=== PATIENT | male | born 1990 | race Caucasian/White ===

== ENCOUNTER 2025-03-22 03:41 | Emergency (ER) | payer BC, SELFPAY ==
--- NOTE | 2025-03-22 03:42 | ED.GENADULT ---
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 States that he was on a binge drinking for the past 5 days, states this is more typical of his drinking behavior. He states that he started seeing shadows and thought he was hallucinating no auditory hallucinations no active SI HI, states that he has been feeling some palpitations but no actual chest pain or shortness of breath. He states that he is not looking for rehab but states that this is the 1st time that he was seeing possible visual hallucinations therefore came into the ED for further evaluation treatment. He does state some nausea but no vomiting, states that he does have some tingling sensations to his bilateral arms, states it is to the palms of his hands. Related Data Home Medications ?Medication ?Instructions ?Recorded ?Confirmed No Known Home Medications 03/22/25 03/22/25 Allergies Allergy/AdvReac Type Severity Reaction Status Date / Time latex Allergy Mild Verified 03/22/25 03:45 Review of Systems Review of Systems Narrative: General: Denies fever, chills, weight loss HEENT: Denies headache, eye drainage, eye irritation, head trauma, sore throat, voice change Cardiovascular: Denies any chest pain, palpitations, tachycardia Respiratory: Denies any shortness of breath, cough, wheeze, stridor GI/: Denies any abdominal pain, nausea, vomiting, diarrhea, bright red blood per rectum, melanotic stools, urinary frequency, urinary retention, dysuria, hematuria MSK: Denies any joint pain, muscle pains, swelling Skin: Denies any rashes, lesions, discoloration Neuro: Denies any headache, lightheadedness, dizziness, fainting, weakness Psych: Denies SI/HI, positive visual hallucinations Exam Narrative Exam Narrative: General: Cooperative, well-developed, not in acute distress HEENT: Normocephalic, atraumatic, PERRLA, normal sclera, eyelids normal Neck: Active full range of motion, atraumatic Chest: Normal to inspection, negative crepitus, no overlying erythema ecchymosis Respiratory: Normal respiratory effort, not in acute respiratory distress, clear to auscultation bilaterally negative cough, wheeze, tachypnea, rhonchi, rales Cardiology: Regular rate rhythm negative gallop, murmur, rubs GI/: No tenderness to palpation, soft, non rigid, normal to inspection, exam deferred MSK: Full active range of motion in all 4 extremities, atraumatic, no tenderness to palpation of any bony prominences Skin: No rashes or lesions noted Neuro: Alert awake oriented x3, moves all 4 extremities spontaneously, cranial nerves intact, able to answer all questions appropriately follows commands appropriately Psych: Cooperative, negative suicidal or homicidal ideations Initial Vital Signs Initial Vital Signs: Vital Signs Temperature 98 F 03/22/25 03:45 Pulse Rate 106 H 03/22/25 03:45 Respiratory Rate 16 03/22/25 03:45 Blood Pressure 129/70 03/22/25 03:45 Pulse Oximetry 100 03/22/25 03:45 Oxygen Delivery Method Room Air 03/22/25 03:45 Course Orders Ordered: ED Orders 03/22/25 03:47 Complete Blood Count AUTO DIFF Stat Comprehensive Metabolic Panel Stat Ethanol (ETOH) Stat TSH w/ Reflex to FT4 Stat EKG-12 Lead Stat 03/22/25 03:48 XR chest 1V Stat MAG [Magnesium] Stat 03/22/25 03:52 Troponin & CK Cardiac Panel Stat 03/22/25 03:56 Urine Drug Screen, Rapid Stat 03/22/25 04:00 Urine Culture Stat Urine Microscopic Stat Discontinued Medications Folic Acid (Folic Acid 1 Mg Tablet) 1 mg PO NOW ONE Stop: 03/22/25 03:48 Last Admin: 03/22/25 04:07 Dose: 1 mg Sodium Chloride (Normal Saline 0.9%) 1,000 mls @ 1,000 mls/hr IV BOLUS ONE Stop: 03/22/25 04:46 Last Admin: 03/22/25 03:56 Dose: 1,000 mls/hr Ondansetron HCl (Ondansetron 4 Mg/2 Ml Inj) 4 mg IV NOW ONE Stop: 03/22/25 03:48 Last Admin: 03/22/25 03:56 Dose: 4 mg Phenobarbital (Phenobarbital 65 Mg/Ml Vial) 130 mg IV NOW ONE Stop: 03/22/25 03:52 Last Admin: 03/22/25 03:56 Dose: 130 mg Thiamine HCl (Thiamine 100 Mg Tablet) 100 mg PO NOW ONE Stop: 03/22/25 03:48 Last Admin: 03/22/25 04:07 Dose: 100 mg Vital Signs Vital signs: Vital Signs - 8 hr 03/22/25 03:45 03/22/25 04:08 03/22/25 04:08 Temperature 98 F Pulse Rate 106 H 98 H Respiratory Rate 16 Blood Pressure 129/70 144/74 H Pulse Oximetry 100 100 Oxygen Delivery Method Room Air Room Air Medical Decision Making Lab Data 03/22/25 04:03 03/22/25 04:03 Labs: Lab Results 03/22/25 03/22/25 Range/Units 03:56 04:03 WBC 8.5 (4.5-11.0) X10^3/uL RBC 5.06 (4.5-5.9) X10^6/uL Hgb 15.2 (13.5-17.5) g/dL Hct 43.7 (41-53) % MCV 86.4 (80-100) fL MCH 30.0 (26-34) PG MCHC 34.7 (30-36) % RDW 13.6 (11.6-14.8) % Plt Count 233 (150-400) X10^3/uL Neut % (Auto) 64.0 (50-75) % Lymph % (Auto) 26.6 (25-40) % [place] % (Auto) 8.4 (3-14) % Eos % (Auto) 0.7 L (2-4) % Baso % (Auto) 0.3 (0-2) % Neut # (Auto) 5500 (2827-5988) /uL Lymph # (Auto) 2300 (6053-2958) /uL [place] # (Auto) 700 (0-900) /uL Eos # (Auto) 100 (0-450) /uL Baso # (Auto) 0 (0-100) /uL Sodium 141 (137-145) mmol/L Potassium 3.5 (3.4-5.1) mmol/L Chloride 104 (98-107) mmol/L Carbon Dioxide 19 L (22-32) mmol/L BUN 16 (9-20) mg/dL Creatinine 0.70 (0.66-1.25) mg/dL Estimated GFR > 60 (>60) mL/min BUN/Creatinine Ratio 22.9 H (6-22) Glucose 109 H (70-99) mg/dL Calcium 9.7 (8.4-10.2) mg/dL Magnesium 1.7 (1.6-2.3) mg/dL Total Bilirubin 1.2 (0.2-1.3) mg/dL AST 48 (17-59) IU/L ALT 45 (<50) IU/L Alkaline Phosphatase 67 (38-126) U/L Total Creatine Kinase 159 (55-170) U/L Troponin I < 0.012 (0.01-0.034) ng/mL Total Protein 8.2 (6.3-8.2) g/dL Albumin 5.5 H (3.5-5.0) g/dL Globulin 2.7 (1.7-4.1) g/dL Albumin/Globulin Ratio 2.0 (1.0-2.8) Urine RBC 1-5/hpf (0-5/HPF) Urine WBC 1-5/hpf (0-5/HPF) Ur Squamous Epith Cells 1-5 /hpf (0-5/HPF) Urine Bacteria Few (2-10) H (None) Urine Mucus 2+ H (Negative) Ur Culture Indicated? TNP Vol Urine Centrifuged 10ml (spun) U Opiates 300ng/mL cut Negative (Negative) Ur Oxycodone Screen Negative (Negative) Urine Methadone Screen Negative (Negative) Ur Barbiturates Screen Negative (Negative) U Tricyclic Antidepress Negative (Negative) Ur Phencyclidine Scrn Negative (Negative) Ur Amphetamines Screen Negative (Negative) U Methamphetamines Scrn Negative (Negative) Ur MDMA Scrn (Ecstasy) Negative (Negative) U Benzodiazepines Scrn Negative (Negative) Urine Cocaine Screen Negative (Negative) U Marijuana (THC) Screen Positive H (Negative) Urine pH Normal (Normal) Urine Specific [place] Normal (Normal) Ethyl Alcohol 42 H (<10) mg/dL Ur Creatinine Normal (Normal) Urine Dip Bedside Urine Glucose Negative Bedside Urine Bilirubin - Negative Bedside Urine Ketone +++ 80 Urine Specific [place] 1.015 Bedside Urine Occult Blood + Bedside Urine pH 7.0 Bedside Urine Protein + 30 Bedside Urine Urobilinogen - Negative Bedside Urine Nitrite - Negative Bedside Urine Leukocytes - Negative Esterase Point of care testing: Urine Dip Bedside Urine Glucose Negative Bedside Urine Bilirubin - Negative Bedside Urine Ketone +++ 80 Urine Specific [place] 1.015 Bedside Urine Occult Blood + Bedside Urine pH 7.0 Bedside Urine Protein + 30 Bedside Urine Urobilinogen - Negative Bedside Urine Nitrite - Negative Bedside Urine Leukocytes - Negative Esterase ECG Data Interpretation: EKG interpreted ED physician sinus 82 beats per minute QTC 446, normal axis no STEMI MDM Narrative Medical decision making narrative: 34-year-old male history of alcohol abuse comes into the ED from home for evaluation of possible alcohol withdrawal, states that he normally been strength, states that his last drink was 6 hours ago and was Tequila has been drinking for the past 5 days. States that he has had history of rehab in the past but is not surgery for this today, he states he comes in because he has been having some tingling sensation to his bilateral upper extremities palpitations no chest pain shortness breath and he states that for the 1st time he started seeing possible hallucinations, states that he might have saw some shadows. No auditory hallucination no SI HI, at time of initial evaluation patient with a CIWA of 11, phenobarbital was ordered, he has calm and cooperative. He does not want any resources and or rehab. Patient's chest x-ray without any acute cardiopulmonary abnormality, lab work unremarkable, troponin negative, patient felt significantly better after dose of phenobarbital here. Repeat CIWA now 3. He was given strict return precautions he verbalized understanding and agrees to being discharged home with outpatient follow up. Discharge Plan Departure Patient Disposition: Home Clinical Impression: Alcohol abuse, Alcohol withdrawal Instructions: DI for Alcohol Use Disorder Activity Restrictions/Additional Instructions: Please follow up with the primary care doctor as needed Please try to limit your alcohol consumption Please read the discharge instructions sheet carefully and bring all papers to all doctor follow-up visits, as it may contain information that your doctor may want to see. Disease processes change and evolve, if your symptoms worsen or if you develop any new symptoms that are concerning to you please return for evaluation. Your evaluation today does not show any evidence of any life-threatening/serious illnesses requiring admission to the hospital or surgery. Please follow-up with your doctor for re-evaluation in approximately 1 day. Seek immediate medical attention for any worrisome symptoms. *If you do not have a primary care provider please contact the [facility] Resource line at [phone]. They will ask some questions about your medical history and help get you set up with a doctor in the community. Prescriptions: No Action No Known Home Medications Stand Alone Forms: Patient Portal/API
[2025-03-22 03:45] VITALS: BP 129/70; PULSE 106; RESP 16; TEMP 36.6; O2SAT 100; BMI 25.8
--- NOTE | 2025-03-22 03:48 | DI.RAD.S_ITS ---
PROCEDURE: XR CHEST 1V INDICATIONS: palpitations TECHNIQUE: One view of the chest was acquired. COMPARISON: None. FINDINGS: Surgical changes and devices: None. Lungs and pleura: Lungs are clear. No pleural effusions or pneumothorax. Mediastinum: Mediastinal contours appear normal. Heart size is normal. Bones and chest wall: No suspicious bony lesions. Overlying soft tissues appear unremarkable. IMPRESSION: No acute cardiopulmonary pathology. Dictated by: Brock Golden M.D. on 03/22/2025 at 7:44 Approved by: Brock Golden M.D. on 03/22/2025 at 7:44
[2025-03-22] MEDS: SODIUM CHLORIDE 0.9% 1,000 ML 1000 ML IV (03:56)
[2025-03-22] MEDS: ONDANSETRON 4 MG/2 ML INJ IV (03:56)
[2025-03-22] MEDS: THIAMINE 100 MG TABLET PO (04:07)
[2025-03-22] MEDS: FOLIC ACID 1 MG TABLET PO (04:07)
[2025-03-22 04:08] VITALS: BP 144/74; PULSE 98; O2SAT 100
[2025-03-22 04:11] LABS: UR Morphine/Opiate cutoff 300 Negative (Negative); Ur Specific Gravity Normal (Normal); Urine MDMA Negative (Negative); Urine Methamphetamines Negative (Negative); Urine Tetrahydrocannabinol Positive (Negative); Urine Tricyclic Antidepressant Negative (Negative)
[2025-03-22 04:14] LABS: Add Manual Diff / Slide Review NO; Hematocrit 43.7 % (41-53); Hemoglobin 15.2 g/dL (13.5-17.5); Lymphocytes Absolute Auto 2300 /uL (1100-4500); Mean Corpuscular HGB Conc 34.7 % (30-36); Mean Corpuscular Hemoglobin 30.0 PG (26-34); Mean Corpuscular Volume 86.4 fL (80-100); Platelet Count 233 X10^3/uL (150-400)
[2025-03-22 04:24] LABS: Alanine Aminotransferase 45 IU/L (<50); Albumin 5.5 g/dL (3.5-5.0); Albumin Globulin Ratio 2.0 (1.0-2.8); Alkaline Phosphatase 67 U/L (38-126); Blood Urea Nitrogen 16 mg/dL (9-20); Calcium 9.7 mg/dL (8.4-10.2); Carbon Dioxide 19 mmol/L (22-32); Chloride 104 mmol/L (98-107); Creatine Kinase 159 U/L (55-170); Estimated Glomerular Filt Rate > 60 mL/min (>60); Ethanol (ETOH) 42 mg/dL (<10); Globulin 2.7 g/dL (1.7-4.1); Glucose 109 mg/dL (70-99); HEMOLYSIS < 15 (0-50); Magnesium 1.7 mg/dL (1.6-2.3); Potassium 3.5 mmol/L (3.4-5.1); Sodium 141 mmol/L (137-145); Total Protein 8.2 g/dL (6.3-8.2)
[2025-03-22 04:30] VITALS: PULSE 81; RESP 16; O2SAT 100
[2025-03-22 04:35] LABS: Troponin I < 0.012 ng/mL (0.01-0.034)
--- NOTE | 2025-03-22 04:51 | EKG_ITS ---
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
[2025-03-22 05:08] LABS: TSH w/ Reflex to FT4 0.84 uIU/mL (0.47-4.68)
== END 2025-03-22 05:02 | disposition home or self-care (01) ==
PROVIDERS: Emergency Provider Student in an Organized Health Care Education/Training Program
DX: F10.139 Alcohol abuse with withdrawal, unspecified (principal); R11.0 Nausea; R20.2 Paresthesia of skin
CPT/HCPCS: 36415; 71045; 80053; 80305; 80320; 81003; 81015; 82550; 83735; 84443; 84484; 85025; 87086; 93005; 96361; 96374; 96375; 99284; J2405; J2560; J7030